=== PATIENT | female | born 1960 | race Caucasian/White ===

== ENCOUNTER → 2024-03-10 10:09 | Outpatient (CLI) | payer BC, SELFPAY ==
--- NOTE | 2024-03-12 15:43 | DI.NM.S_ITS ---
DATE OF SERVICE: 03/10/2024 PROCEDURE PERFORMED: Exercise treadmill stress and rest myocardial perfusion imaging with gating to assess ejection fraction and regional wall motion. ORDERING PROVIDER: Nesha Shields PA-C. INDICATIONS: The patient is a 64-year-old obese diabetic female with chest pressure. CARDIAC STRESS: The patient was able to exercise for a total of 7 minutes on a standard Elia protocol suggesting fair exercise capacity with an NELY of -6%, achieving 10.1 METs. She had a normal heart rate and blood pressure response to exercise, achieving a maximum heart rate of 167 BPM (106% of her predicted maximum). She had no chest discomfort or other anginal symptoms. Her resting ECG is normal and there are no significant ST-segment shifts with exercise. There were rare PVCs in recovery, rarely in couplets, but no concerning ventricular ectopy. At 5 minutes and 38 seconds of exercise at a heart rate of 156 BPM, 26.7 millicuries of technetium-99m Myoview was injected and she was imaged 15 minutes later using a quantitated gated SPECT protocol. Two days prior, while at rest, she had been injected with 25.4 millicuries of technetium- 99m Myoview and was imaged 15 minutes later, again using a gated SPECT acquisition protocol. FINDINGS: 1. Raw data. There is fair myocardial tracer uptake but fairly prominent breast shadows are noted that clearly produce some attenuation artifact. While the lung/heart ratio is elevated at 0.58, which can be a sign of pulmonary congestion, this is not evident visually and is nonspecific. The TID ratio is normal at 0.85. 2. Quantitated gated SPECT: Post-stress ejection fraction is estimated at 73% without any focal wall motion abnormality and specifically the distal anterior wall has normal contractility. The resting ejection fraction is 66% with a normal resting end-diastolic volume of 112 mL. 3. Myocardial perfusion imaging: Post-stress supine images show a small, subtle defect in the distal anterior wall extending to, but not including the apex in a pattern consistent with breast attenuation artifact, supported by its complete resolution on the prone images. The resting images show a similar perfusion pattern without any significant areas of improvement. IMPRESSION: 1. Normal myocardial perfusion study. 2. Small fixed distal anterior apical defect that resolves on prone imaging, consistent with breast attenuation artifact. There is no compelling evidence for any myocardial ischemia or previous myocardial infarction. 3. Normal left ventricular size and systolic function without any focal wall motion abnormality. While the lung/heart ratio is elevated at 0.58, which can be a sign of pulmonary congestion, this is not evident visually and is nonspecific and requires clinical correlation. 4. Fair exercise capacity without angina or ECG evidence of ischemia. She had rare PVCs, rarely in couplets, but no concerning complex ventricular ectopy. Nora Rashid - GENEVA/violeta/jessica doc#: [id number]/job#: [id number] dd: 03/12/2024 13:07:00 dt: 03/12/2024 15:29:00 DICTATING MD/COPIES TO: Westley Granger MD; NESHA SHIELDS PA-C COPIES MNE: DANA; ; NESHA SHIELDS PA-C
== END ==
LOC: NUCM 10:11
PROVIDERS: Referring Provider Physician Assistant Medical; Visit Provider Physician Assistant Medical
DX: R07.89 Other chest pain (principal)
CPT/HCPCS: 78452; 93017; A9502